=== PATIENT | female | born 1940 | race Caucasian/White ===

== ENCOUNTER 2025-03-04 13:01 | Inpatient (IN) | payer MEDICARE, OTHER, SELFPAY ==
[2025-03-02] VITALS (8 sets, daily range): BP systolic 91–153; BP diastolic 51–78; BMI 25.1
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
[2025-03-02 02:36] LABS: Hematocrit 29.9 % (37.0-47.0); Hemoglobin 9.6 g/dL (12.0-16.0); Mean Corp Hgb Conc. 32.1 g/dL (33.0-37.0); Mean Corpuscular Volume 79.7 fL (81.0-99.0); Nucleated Red Blood Cells % 0 %; Platelet Count 206 10^3/uL (130-400); Red Cell Dist. Width 14.3 % (11.5-14.5)
[2025-03-02 02:50] LABS: ALT (SGPT) 16 U/L (0-35); AST (SGOT) 20 U/L (14-36); Albumin 3.7 g/dl (3.5-5.0); Alkaline Phosphatase 95 U/L (38-126); Blood Urea Nitrogen 22 mg/dl (7-17); Calcium 9.6 mg/dl (8.4-10.2); Carbon Dioxide 22 mmol/L (22-30); Chloride 110 mmol/L (98-107); Estimated Creatinine Clearance 31 ml/min; Glucose 106 mg/dl (70-99); Potassium 4.2 mmol/L (3.5-5.1); Sodium 139 mmol/L (135-145); Total Protein 6.8 g/dl (6.3-8.2); eGFR 45.19
[2025-03-02] MEDS: MORPHINE SULFATE 2 MG IV (02:54)
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
--- NOTE | 2025-03-02 09:25 | W.PN.HOSP.TC ---
Today's Communication/Plan
-
see a/p
Assessment / Plan
Assessment / Plan
Physical Exam
General: Initially appeared comfortable sleeping, noted severe rectal pain after being woken for examination
HEENT: NormoCephalic, Anicteric, Moist mucous membranes and PERRLA, Hard of hearing
Respiratory: Clear
Cardiac: S1/S2 and Regular Rhythm
GI: Soft, Non Tender, Non Distended and Normal Bowel Sounds
Musculoskeletal: No Clubbing, No Cyanosis and No Edema
Skin: Warm
Neuro: AOx1 oriented to self only, conversant though confusion noted
Psych: Relatively Calm cooperative, confused, apparent dementia
84F hx afib watchman htn CKD III hx falls constipation here for severe constipation overflow incontinence rectal pain. CT scan showing large stool burden and findings consistent with stercoral colitis. Patient also has cognitive decline for the
past few years.
PLAN:
Constipation
- med/surg admit
- lactulose enema in ED
- continue po lactulose bid with hold parameters
- miralax daily, prn MOM
- GI eval appreciated
- milk and molasses enema and diet as per GI
- IVF hydration support
-pain control
afib s/p watchman
Continue her amiodarone/metoprolol for afib, s/p watchman and confirmed effective, no blood thinners
HTN
Continue antihypertensive regimen
CKDIII
monitor renal function
minimize/avoid nephrotoxic agents as possible
DVT PPX - lovenox sq
code status - full code
discussed with patient and patient's daughter Flori at bedside
I spent a total of 50 minutes with the patient or on the floor. More than 50% of this time involved counseling and coordination of care.
Anticipated Discharge: 24 - 48 hours
Subjective/Interval History
-
Date of Service: March 02, 2025
No acute distress, appeared comfortable sleeping, however noted severe rectal pain on waking, abd tenderness. AOx1, only oriented to self. Daughter Flori present during evaluation.
Objective Data
-
Labs:
Laboratory Results
03/02/25
02:28
WBC 12.9 H
Hgb 9.6 L
Hct 29.9 L
Plt Count 206
Sodium 139
Potassium 4.2
Chloride 110 H
Carbon Dioxide 22
BUN 22 H
Creatinine 1.2 H
Glucose 106 H
Calcium 9.6
Total Bilirubin 0.6
AST 20
ALT 16
Alkaline Phosphatase 95
Vital Signs:
Vital Signs
Temp Pulse Resp BP Pulse Ox
98.5 F 75 18 153/64 96
03/02/25 08:48 03/02/25 08:48 03/02/25 08:48 03/02/25 08:48 03/02/25 08:48
[2025-03-02] MEDS: COZAAR 100 MG PO (09:34)
[2025-03-02] MEDS: NORVASC 5 MG PO (09:34)
[2025-03-02] MEDS: CATAPRES 0.05 MG PO ×2 (09:35→23:20)
[2025-03-02] MEDS: TOPROL XL 12.5 MG PO ×2 (09:35→23:21)
[2025-03-02] MEDS: DUPHALAC/CHRONULAC 20 GRAMS PO ×2 (09:36→21:06)
[2025-03-02] MEDS: MIRALAX 17 GRAMS PO (09:38)
[2025-03-02] MEDS: TYLENOL 650 MG PO ×2 (11:07→21:10)
[2025-03-02] MEDS: PACERONE 200 MG PO (11:08)
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
--- NOTE | 2025-03-02 15:54 | CM ---
Addendum entered by Tamiko Lyles 03/02/25 16:08:
[facility] visiting nurses
[phone]

Original Note:
web content & social media manager reviewed patient's chart and met with patient and daughter at bedsides, patient is [facility], patient was admitted under OBS, AWAN letter explained, signed and placed on chart, patient is staying with her daughter and son in law along with
her spouse in [place], family moved couple in about a month ago, patient has 1st floor set up with hospital bed, [employer] W/c, patient is current with [facility] visiting nurses and has private caregivers for 4 hours per day from [employer]. Per
daughter plan is to take patient home when stable, will sent referral to [facility].
Pharmacy: [facility].
[2025-03-02] MEDS: LR 1000 IV (17:00)
[2025-03-02] MEDS: MOTRIN 400 MG PO (17:02)
[2025-03-02] MEDS: LOVENOX 40 MG SC (18:23)
[2025-03-02] MEDS: SENOKOT-S 1 TABLET PO (21:10)
[2025-03-03] MEDS: LR 1000 IV ×3 (01:22→22:32)
[2025-03-03 06:19] LABS: Hematocrit 27.6 % (37.0-47.0); Hemoglobin 8.9 g/dL (12.0-16.0); Mean Corp Hgb Conc. 32.2 g/dL (33.0-37.0); Mean Corpuscular Volume 79.3 fL (81.0-99.0); Platelet Count 194 10^3/uL (130-400); Red Cell Dist. Width 14.9 % (11.5-14.5)
[2025-03-03 06:57] LABS: Blood Urea Nitrogen 18 mg/dl (7-17); Calcium 9.1 mg/dl (8.4-10.2); Carbon Dioxide 22 mmol/L (22-30); Chloride 109 mmol/L (98-107); Estimated Creatinine Clearance 31 ml/min; Glucose 98 mg/dl (70-99); Magnesium 2.4 mg/dl (1.6-2.3); Potassium 4.2 mmol/L (3.5-5.1); Sodium 138 mmol/L (135-145); eGFR 45.19
--- NOTE | 2025-03-03 07:24 | W.PN.HOSP.TC ---
Today's Communication/Plan
-
cont bowel regimen
diet as per Gi
possible discharge tomorrow home with home services if remains stable/cont to improve
Assessment / Plan
Assessment / Plan
Physical Exam
General: Initially appeared comfortable sleeping, noted severe rectal pain after being woken for examination
HEENT: NormoCephalic, Anicteric, Moist mucous membranes and PERRLA, Hard of hearing
Respiratory: Clear
Cardiac: S1/S2 and Regular Rhythm
GI: Soft, Non Tender, Non Distended and Normal Bowel Sounds
Musculoskeletal: No Clubbing, No Cyanosis and No Edema
Skin: Warm
Neuro: AOx2 disoriented to time, conversant though confusion noted
Psych: Relatively Calm cooperative, confused, apparent dementia
84F hx afib watchman htn CKD III hx falls constipation here for severe constipation overflow incontinence rectal pain. CT scan showing large stool burden and findings consistent with stercoral colitis. Patient also has cognitive decline for the
past few years.
PLAN:
Constipation
- med/surg admit
- lactulose enema in ED
- continue po lactulose bid with hold parameters
- miralax daily, prn MOM
- GI eval appreciated
- once milk and molasses enema with good response noted
-diet as per GI
- IVF hydration support
-pain control
afib s/p watchman
Continue her amiodarone/metoprolol for afib, s/p watchman and confirmed effective, no blood thinners
HTN
Continue antihypertensive regimen
CKDIII
monitor renal function
minimize/avoid nephrotoxic agents as possible
DVT PPX - lovenox sq
code status - full code
discussed with patient and patient's Deepak at bedside
I spent a total of 40 minutes with the patient or on the floor. More than 50% of this time involved counseling and coordination of care.
Anticipated Discharge: Within 24 hours
Subjective/Interval History
-
Date of Service: March 03, 2025
no acute distress resting comfortably in bed AOx2 disoriented to year. Conversant largely Coherent. Pain significantly improved since resolution of constipation. Deepak present during evaluation.
Objective Data
-
Labs:
Laboratory Results
03/03/25
05:53
WBC 11.3 H
Hgb 8.9 L
Hct 27.6 L
Plt Count 194
Sodium 138
Potassium 4.2
Chloride 109 H
Carbon Dioxide 22
BUN 18 H
Creatinine 1.2 H
Glucose 98
Calcium 9.1
Vital Signs:
Vital Signs
Temp Pulse Resp BP Pulse Ox
99 F 94 16 132/80 98
03/02/25 22:30 03/02/25 23:21 03/02/25 22:30 03/02/25 23:21 03/02/25 22:30
[2025-03-03 08:00] VITALS: BP 143/80
[2025-03-03] MEDS: CATAPRES 0.05 MG PO ×2 (10:16→22:33)
[2025-03-03] MEDS: NORVASC 5 MG PO (10:16)
[2025-03-03] MEDS: COZAAR 100 MG PO (10:17)
[2025-03-03] MEDS: TOPROL XL 12.5 MG PO ×2 (10:17→22:35)
[2025-03-03] MEDS: DUPHALAC/CHRONULAC PO ×2 (10:18→22:32)
[2025-03-03] MEDS: MIRALAX PO (10:18)
--- NOTE | 2025-03-03 10:52 | W.PN.GI.CBS2 ---
Today's Communication / Plan
-
Puree diet
C/w miralax BID standing not PRN, d/w family
GI will sign off please call for ?
Assessment / Plan
-
Fabi is an 84yo W with h/o afib s/p watchman and dementia bedbound who presents with rectal pressure and constipation. She use to live in [facility] and after falls was in SNF. Daughter moved parents up to live with her and for the past 3
wks there is constipation. She is not using bowel regimen daily basis . She is less active does not drink much water and incontinent. Vitals stable. Physical exam agitated, bruised head, poor dentition clear OP, dry mucous membranes, lower
quadrant TTP, contracted legs, CTAB. Hyperpigmentation over anterior shins bilaterally. Labs reviewed.
Impression
- Severe constipation with stercoral colitis
- Dementia
- Bed bound
- Afib s/p watchman
- Recurrent falls
- HTN
Recommendations
- Milk of molasses enema 03/02 with improvement
- C/w miralax BID stressed to family importance of daily not PRN use
- Adv to puree diet
- Serial abd exams
- Last Cscope at age 82 and declines all further which is reasonable given dementia and advanced age.
At this juncture if tolerates diet ok from GI perspective for hospital d/c today
Will sign off please call for ?
Subjective
Subjective
Date of Service: March 03, 2025
Per RN passed copious BMs yesterday and today post MOM enema. She is more awake today. Interested in diet. Son bedside
Objective
Data Reviewed
Laboratory Data:
Laboratory Results
03/03/25 05:53
03/03/25 05:53
Laboratory Results
Phosphorus 3.8 mg/dl (2.5-4.5) 03/03/25 05:53
Magnesium 2.4 mg/dl (1.6-2.3) H 03/03/25 05:53
Total Bilirubin 0.6 mg/dl (0.2-1.3) 03/02/25 02:28
AST 20 U/L (14-36) 03/02/25 02:28
ALT 16 U/L (0-35) 03/02/25 02:28
Alkaline Phosphatase 95 U/L (38-126) 03/02/25 02:28
Vital Signs and I&O:
Vital Signs
Temp Pulse Resp BP Pulse Ox
98.7 F 85 19 143/80 98
03/03/25 08:00 03/03/25 08:00 03/03/25 08:00 03/03/25 08:00 03/03/25 08:00
Physical Exam
Physical Exam
GEN: No acute distress, conversant but very confused
HEENT: anicteric, extraocular movements intact, poor dentition
GI: soft, non-distended, not tender to palpation, normal active bowel sounds, no hepatosplenomegaly
EXT: warm, well perfused, trace edema bilaterally
NEURO: AAOx1 only to self, non-focal
[2025-03-03 15:00] VITALS: BP 131/60
[2025-03-03] MEDS: LOVENOX 40 MG SC (18:43)
[2025-03-03 22:25] VITALS: BP 140/59
[2025-03-03 23:00] VITALS: BP 140/59
[2025-03-04 07:55] VITALS: BP 108/71
[2025-03-04] MEDS: MIRALAX PO (08:08)
[2025-03-04] MEDS: CATAPRES PO ×3 (08:08→12:09)
[2025-03-04] MEDS: DUPHALAC/CHRONULAC PO (08:08)
[2025-03-04] MEDS: COZAAR PO ×3 (08:08→12:09)
[2025-03-04] MEDS: NORVASC PO ×3 (08:09→12:09)
[2025-03-04] MEDS: PACERONE PO ×3 (08:09→12:09)
[2025-03-04] MEDS: TOPROL XL PO ×3 (08:09→12:09)
--- NOTE | 2025-03-04 08:09 | PTCARENOTE ---
Attempted to give AM medication. Patient refused and spit medication out. Hospitalist aware.Pt very agitated and yelling out crying. Plan of care ongoing.
[2025-03-04 08:55] LABS: Hematocrit 27.9 % (37.0-47.0); Hemoglobin 9.1 g/dL (12.0-16.0); Mean Corp Hgb Conc. 32.6 g/dL (33.0-37.0); Mean Corpuscular Volume 78.6 fL (81.0-99.0); Platelet Count 224 10^3/uL (130-400); Red Cell Dist. Width 14.7 % (11.5-14.5)
[2025-03-04] MEDS: LR 1000 IV (09:10)
--- NOTE | 2025-03-04 09:12 | W.PN.HOSP.TC ---
Today's Communication/Plan
-
discharge
Assessment / Plan
Assessment / Plan
Physical Exam
General: agitated
HEENT: NormoCephalic, Anicteric, Moist mucous membranes and PERRLA, Hard of hearing
Respiratory: Clear
Cardiac: S1/S2 and Regular Rhythm
GI: Soft, Non Tender, Non Distended and Normal Bowel Sounds
Musculoskeletal: No Clubbing, No Cyanosis and No Edema
Skin: Warm
Neuro/Psych: Agitated Confused yelling she wants to go home, daughter at bedside helping with re-orientation
84F hx afib watchman htn CKD III hx falls constipation here for severe constipation overflow incontinence rectal pain. CT scan showing large stool burden and findings consistent with stercoral colitis. Patient also has cognitive decline for the
past few years.
PLAN:
Constipation
- med/surg admit
- lactulose enema in ED
- continue po lactulose bid with hold parameters
- prn MOM
- GI eval appreciated cont Miralax BID
- once milk and molasses enema with good response noted
-diet as per GI
- IVF hydration support
-pain control
afib s/p watchman
Continue her amiodarone/metoprolol for afib, s/p watchman and confirmed effective, no blood thinners
Dementia
Sundowning
Waxing and waning
-likely hospital associated delirium vs dementia w/ behavioral disturbances
-family/daughter Flori at bedside comfortable with taking patient home- patient likely to improve when in familiar environment
HTN
Continue antihypertensive regimen
CKDIII
monitor renal function
minimize/avoid nephrotoxic agents as possible
DVT PPX - lovenox sq
code status - full code
Medically stable for discharge home with outpatient follow up recommendations.
discussed with patient and patient's daughter Flori
Total Time Preparing Discharge ____40___ minutes including examination of the patient, summary of the hospital stay, instructions for continuing care to all relevant caregivers; and preparation of discharge records, prescriptions, and referral
forms if necessary.
Anticipated Discharge: Today
Subjective/Interval History
-
Date of Service: March 04, 2025
Agitated confused yelling she wants to go home. Vitals signs otherwise stable on room air. Daughter Flori present during evaluation.
Objective Data
-
Labs:
Laboratory Results
03/04/25
08:18
WBC 11.2 H
Hgb 9.1 L
Hct 27.9 L
Plt Count 224
Sodium Pending
Potassium Pending
Chloride Pending
Carbon Dioxide Pending
BUN Pending
Creatinine Pending
Glucose Pending
Calcium Pending
Vital Signs:
Vital Signs
Temp Pulse Resp BP Pulse Ox
98.5 F 102 16 108/71 98
03/04/25 07:55 03/04/25 07:55 03/04/25 07:55 03/04/25 07:55 03/04/25 07:55
I&O
03/03/25 03/04/25 03/05/25
06:59 06:59 06:59
Intake Total 1320 / 1320
Balance 1320 / 1320
[2025-03-04 09:21] LABS: Blood Urea Nitrogen 15 mg/dl (7-17); Calcium 9.4 mg/dl (8.4-10.2); Carbon Dioxide 23 mmol/L (22-30); Chloride 109 mmol/L (98-107); Estimated Creatinine Clearance 34 ml/min; Glucose 97 mg/dl (70-99); Magnesium 2.1 mg/dl (1.6-2.3); Potassium 3.9 mmol/L (3.5-5.1); Sodium 137 mmol/L (135-145); eGFR 50.17
[2025-03-04] MEDS: LR IV (10:47)
--- NOTE | 2025-03-04 13:38 | W.DCSUMMARY ---
Discharge Summary
Discharge Data
Date of Admission: 03/02/25
Date of Discharge: 03/04/25
-
Pending Results: No
Discharge Plan
-
Patient Disposition: Home with Home Care
Discharge Diagnosis/Procedures: Severe constipation with stercoral colitis
Chronic Kidney Disease Stage III
Dementia with behavioral disturbances
Condition: Fair
Diet: Other diet
Additional Diets: Pureed diet, ok to advance as tolerated
Activity: As tolerated
Driving Restrictions: No driving
Bathing Restrictions: None
Blood Work: Repeat CBC and BMP with primary care provider in 1 week of discharge
Others Tests: Repeat CT abd/pelvis with IV contrast, with primary care provider, in 1 month of discharge
Other Services: PT and OT
Activity Restrictions/Additional Instructions:
Follow up with primary care provider in 1 week of discharge.
Continue with Miralax twice a day for severe constipation prophylaxis. This is available over the counter.
Please take medications as prescribed/recommended and follow up with primary care provider and/or other healthcare provider involved in your care for refills and/or further adjustment to your medication regimen as necessary.
Referrals:
UNKNOWN - PT DOES,NOT KNOW [Family Provider]
Prescriptions:
New
polyethylene glycol 3350 17 gram Powder In Packet
17 g PO BID Qty: 60 0RF
Continued
clonidine HCl 0.1 mg Tablet
0.05 mg PO BID
amiodarone 200 mg Tablet
200 mg PO Q48H
Rx Instructions:
every other day
amlodipine 5 mg Tablet
5 mg PO DAILY
metoprolol succinate 25 mg Tablet Extended Release 24 Hr
12.5 mg PO BID
losartan 100 mg Tablet
100 mg PO DAILY
Discharge Orders:
Discharge Patient (As Directed); Ordered 03/04/25
Ordered By: Darryn Shultz
Discharge Date and Time
Print Language: DOMINICAN
--- NOTE | 2025-03-04 13:43 | CM ---
Addendum entered by Hyun Bennett 03/04/25 13:57:
Patient scheduled for 6:30 p.m. ambulance transport
Original Note:
CM reviewed chart, patient seen with daughter, for discharge today. Patient will require ambulance transport home, confirmed address, one step to enter, someone will be in the home to accept patient. Plan return home with Lucy COBB, caregivers,
family support. CM will continue to follow for all discharge planning needs.
Plan; home with family, Lucy COBB, caregivers
[facility] visiting nurses
[2025-03-04 15:36] VITALS: BP 110/62
== END 2025-03-04 18:42 | disposition home health service (06) | DRG 392 ==
LOC: 4 WEST ACU 13:01
PROVIDERS: ADMITTING PHYSICIAN Internal Medicine; ATTENDING PHYSICIAN Internal Medicine; CONSULT PHYSICIAN Internal Medicine Gastroenterology; EMERGENCY PHYSICIAN Emergency Medicine
DX: K52.89 Other specified noninfective gastroenteritis and colitis (principal); F03.918 Unspecified dementia, unspecified severity, with other behavioral disturbance; F05 Delirium due to known physiological condition; I31.39 Other pericardial effusion (noninflammatory); K59.00 Constipation, unspecified; N18.30 Chronic kidney disease, stage 3 unspecified; I12.9 Hypertensive chronic kidney disease with stage 1 through stage 4 chronic kidney disease, or unspecified chronic kidney disease; I48.91 Unspecified atrial fibrillation; Z95.818 Presence of other cardiac implants and grafts; Z74.01 Bed confinement status; Z88.0 Allergy status to penicillin; Z88.2 Allergy status to sulfonamides; Z91.81 History of falling
CPT/HCPCS: 51798; 74177; 80048; 80053; 83735; 84100; 84443; 85025; 85027; 96374; 97163; 97167; 99285; Q9967

== ENCOUNTER 2025-05-22 12:44 | Emergency (ER) | payer MEDICARE, OTHER, SELFPAY ==
[2025-05-22] VITALS (10 sets, daily range): BP systolic 128–155; BP diastolic 62–95; BMI 24.0
[2025-05-22 13:22] LABS: Hematocrit 24.7 % (37.0-47.0); Hemoglobin 7.7 g/dL (12.0-16.0); Mean Corp Hgb Conc. 31.2 g/dL (33.0-37.0); Mean Corpuscular Volume 82.3 fL (81.0-99.0); Nucleated Red Blood Cells % 0 %; Platelet Count 286 10^3/uL (130-400); Red Cell Dist. Width 14.7 % (11.5-14.5)
[2025-05-22 13:51] LABS: ALT (SGPT) 19 U/L (0-35); AST (SGOT) 28 U/L (14-36); Albumin 4.2 g/dl (3.5-5.0); Alkaline Phosphatase 81 U/L (38-126); Blood Urea Nitrogen 20 mg/dl (7-17); Calcium 9.5 mg/dl (8.4-10.2); Carbon Dioxide 25 mmol/L (22-30); Chloride 106 mmol/L (98-107); Glucose 133 mg/dl (70-99); Potassium 4.1 mmol/L (3.5-5.1); Sodium 138 mmol/L (135-145); Total Protein 6.8 g/dl (6.3-8.2); eGFR 41.06
[2025-05-22] MEDS: NSS 500 IV (17:57)
--- NOTE | 2025-05-22 18:14 | ED.GENMED ---
History of Present Illness
General
Chief Complaint: Abnormal Lab Value
Source: patient and family
Exam Limitations: none
Time Seen by Provider: 05/22/25 17:22
History of Present Illness
History of Present Illness:
See MDM
Past History
Past History
ED Past Medical History: HTN and Other (Skin graft)
ED Past Surgical History: Other (Skin graft)
Social History
Tobacco: Non-smoker
Alcohol: None
Drug: None
Living: with family
Employment: Not employed
Family History
Family History: Other
Phy Exam
Physical Exam
Physical Exam:
See MDM
Course
Orders/Labs/Results
Orders:
Orders
05/22/25 13:03
Type+Screen Urgent
Complete Blood Count/With Diff Urgent
Comprehensive Metabolic Panel Urgent
05/22/25 17:30
Blood Bank Products [* Blood Bank Products] Urgent
's Orders: Mani Piedra, DO
Blood Bank Products: *Packed RBC Leuko (PRBC's
Quantity: 1
Transfuse Today: Yes
Reason: Anemia
0.9% Sodium Chloride 500 ml [Nss] 500 ml IV BOLUS
Abnormal Lab Results
05/22/25
13:03
RBC 3.00 L 10^6/uL
(4.20-5.40)
Hgb 7.7 L g/dL
(12.0-16.0)
Hct 24.7 L %
(37.0-47.0)
MCH 25.7 L pg
(27.0-31.0)
MCHC 31.2 L g/dL
(33.0-37.0)
RDW 14.7 H %
(11.5-14.5)
Absolute Monos (auto) 0.7 H 10^3/uL
(0.1-0.6)
Lymphocytes % 18.3 L %
(20.5-51.1)
Monocytes % 9.4 H %
(1.7-9.3)
BUN 20 H mg/dl
(7-17)
Creatinine 1.3 H mg/dL
(0.6-1.0)
Glucose 133 H mg/dl
(70-99)
Crossmatch IS Only See Detail
05/22/25 13:03
05/22/25 13:03
Vital Signs
Initial and Last Documented VS:
Initial Vital Signs
Temp Pulse Resp BP Pulse Ox
98.1 F 73 16 128/62 100
05/22/25 12:55 05/22/25 12:55 05/22/25 12:55 05/22/25 12:55 05/22/25 12:55
Last Documented Vital Signs
Temp Pulse Resp BP Pulse Ox
98.3 F 60 18 155/87 99
05/22/25 21:22 05/22/25 21:22 05/22/25 21:22 05/22/25 21:22 05/22/25 21:22
MDM/Problems Addressed
Differential Diagnosis Includes:
Note:
CHIEF COMPLAINT(S)
Low hemoglobin levels and fatigue.
HISTORY OF PRESENT ILLNESS
The patient is an 84-year-old female with a past medical history of being a wheelchair user and requiring home care, presented with concerns regarding low hemoglobin levels detected through routine blood work. The patient had a hemoglobin level of
6.3 g/dL noted from a recent test, which raised concerns due to her history of lower hemoglobin levels. A subsequent reading showed a hemoglobin level of 7.7 g/dL. Her baseline hemoglobin typically ranges around 8.9 to 9.0 g/dL.
The patient experienced persistent twitching last week, prompting initial concerns of dehydration. 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 She has been relatively stable after
these events but remains on the low end hemoglobin-mayes. Recent admissions were noted due to constipation. Because of this, she no longer takes her iron. She has had a previous episode of heart failure, which improved after undergoing a
transcatheter aortic valve replacement (TAVR) two years ago. The patient is no longer on diuretics like Lasix.
The patient�s condition appears stable, with no recent changes in mental status or any significant incidences of red or black stools. Her sister, who is also her caregiver, reported no significant changes in her eating habits, although she may not
consume an iron-rich diet and tends to have a poor appetite. The patient expressed more fatigue than usual, potentially related to her hemoglobin levels. Daughter denies any concern for UTI
PAST MEDICAL AND SURGICAL HISTORY
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
CHRONIC MEDICAL CONDITIONS SIGNIFICANTLY AFFECTING CARE
Heart failure (previously noted, now stable post-TAVR).
PHYSICAL EXAM
General: Alert, no acute distress.
Skin: Warm, dry.
Head: Normocephalic, atraumatic
Neck: Appears supple, trachea midline.
Eyes, Ears, Nose, Mouth, and Throat: Mildly dry mucous membranes
Cardiovascular: No signs of cyanosis. Regular rate and rhythm
Respiratory: Respirations are non-labored.
Abdomen: Non-distended and nontender
Musculoskeletal: No deformities
Neurological: No focal neurological deficit observed.
Psychiatric: Cooperative, appropriate mood and affect.
PLAN
The plan includes administering one unit of blood to address the low hemoglobin levels. A 500 mL saline infusion is also ordered to address potential dehydration. The patient and her sister consented to the proposed blood transfusion, which is
expected to take a few hours.
DIFFERENTIAL DIAGNOSIS
The Differential Diagnosis includes, in no particular order and is not limited to:
1. Anemia of chronic disease
2. Iron deficiency anemia
3. Gastrointestinal bleeding
4. Nutritional anemia
5. Chronic kidney disease
6. Hematologic malignancy
7. Aplastic anemia
8. Medication-induced anemia
9. Blood loss anemia
10. Myelodysplastic syndrome
SUMMARY OF ENCOUNTER
The patient, an 84-year-old female, was seen in the emergency department due to concerns about low hemoglobin levels and associated fatigue. She underwent a blood transfusion during her stay, which improved her well-being. Her past medical history,
including heart failure (now stable post-TAVR) and previous de los santos requiring transfusions, was considered during management.
DISPOSITION
The patient was discharged home.
PLAN
Arrange follow-up with the primary care provider to evaluate the necessity of restarting iron supplementation, considering the patients hesitance due to past constipation issues from iron.
PATIENT EDUCATION AND COUNSELING
The patient and her daughter were informed about the results of the blood transfusion and addressed concerns regarding the resumption of iron supplements and its side effects. Assurance was provided about seeking further medical advice for managing
iron supplementation and addressing constipation concerns.
FOLLOW-UP INSTRUCTIONS
Please call the office immediately to schedule a follow-up visit with the primary care physician to discuss further management of hemoglobin levels and any potential restart of iron therapy.
MEDICATION RECONCILIATION
The patient received a unit of blood transfusion during her stay in the emergency department.
MEDICAL DECISION MAKING
-Complexity of Data Reviewed: Chronic conditions affecting care include heart failure (stable post-TAVR) and history of de los santos requiring blood transfusions. Differential Diagnosis considerations include anemia of chronic disease, iron deficiency
anemia, and nutritional anemia.
-Data:
Category 2
Clinical information was reinforced by input from the patient�s daughter.
-Risk:
Prescription medication was not immediately prescribed but will be considered upon follow-up with primary care. The decision was made based on patient concerns about constipation from iron supplements.
DIAGNOSIS
- Iron deficiency anemia (D50.9)
- Anemia of chronic disease (D63.8)
*Pulse Oximetry
SaO2: 98
Oxygen Mode of Delivery: Room air
Patient hypoxic: no
*Critical Care Note
Total Time (30-74mins, 75-104mins- exclusive of procedures): Not Applicable
ED Attending Note
-
Portions of this chart may have been created with voice recognition software.� Occasional wrong word or��sound alike� substitutions may have occurred due to the inherent limitations of voice recognition software.
Discharge Plan
Departure
Patient Disposition: Home (Routine Discharge)
Date of Disposition: 05/22/25
Time of Disposition: 17:00
Patient with high blood pressure during this ER visit?: No
Discharge Problem:
Symptomatic anemia
Instructions: Anemia in adults, possibly from low iron - ED (DC)
Prescriptions:
No Action
clonidine HCl 0.1 mg Tablet
0.05 mg PO BID
amiodarone 200 mg Tablet
200 mg PO Q48H
Rx Instructions:
every other day
amlodipine 5 mg Tablet
5 mg PO DAILY
metoprolol succinate 25 mg Tablet Extended Release 24 Hr
12.5 mg PO BID
losartan 100 mg Tablet
100 mg PO DAILY
polyethylene glycol 3350 17 gram Powder In Packet
17 g PO BID Qty: 60 0RF
Referrals:
UNKNOWN - PT DOES,NOT KNOW [Family Provider]
Activity Restrictions/Additional Instructions:
Please return for any worsening symptoms.
You may return at any time if you have further concerns.
Please follow up with your doctor at the first available appointment, preferably this week.
Thank you for choosing [facility].
Interventions
Interventions:
*Risk Screen - Suicide Last Done: 05/22/25 12:55
*General Assessment Last Done: 05/22/25 12:55
*Neglect/Abuse Screening Last Done: 05/22/25 12:55
*ED COVID-19 Vaccine History Last Done: 05/22/25 17:33
*ED Influenza Vaccine History Last Done: 05/22/25 17:33
Discharge Date and Time
Print Language: OCCITAN
== END 2025-05-22 22:25 | disposition home or self-care (01) ==
LOC: EMR 12:44
PROVIDERS: Emergency Medicine; EMERGENCY PHYSICIAN Student in an Organized Health Care Education/Training Program
DX: D64.9 Anemia, unspecified (principal); I11.0 Hypertensive heart disease with heart failure; I50.9 Heart failure, unspecified; Z95.2 Presence of prosthetic heart valve
CPT/HCPCS: 99285; 36430; 96360; 80053; 85025; 86850; 86900; 86901; 86920; P9016

== ENCOUNTER 2025-08-07 18:55 | Inpatient (IN) | payer MEDICARE, OTHER, SELFPAY ==
[2025-08-07] VITALS (8 sets, daily range): BP systolic 119–160; BP diastolic 71–107; BMI 24.6; BMI 23.0
[2025-08-07 15:49] LABS: Hematocrit 34.8 % (37.0-47.0); Hemoglobin 11.5 g/dL (12.0-16.0); Mean Corp Hgb Conc. 33.0 g/dL (33.0-37.0); Mean Corpuscular Volume 77.5 fL (81.0-99.0); Nucleated Red Blood Cells % 0 %; Platelet Count 211 10^3/uL (130-400); Red Cell Dist. Width 15.5 % (11.5-14.5)
[2025-08-07 16:10] LABS: Blood Urea Nitrogen 20 mg/dl (7-17); Calcium 9.6 mg/dl (8.4-10.2); Carbon Dioxide 23 mmol/L (22-30); Chloride 106 mmol/L (98-107); Estimated Creatinine Clearance 34 ml/min; Glucose 105 mg/dl (70-99); Sodium 135 mmol/L (135-145); eGFR 50.17
[2025-08-07 16:30] LABS: COVID-19 Antigen Negative (Negative)
[2025-08-07 17:04] LABS: Urine Character Clear (Clear)
--- NOTE | 2025-08-07 17:05 | ED.GENMED ---
History of Present Illness
<Willow Castillo MD - Last Filed: 08/07/25 17:34>
General
Chief Complaint: Dehydration Symptoms
Time Seen by Provider: 08/07/25 15:26
<Nella Ramírez PA-C - Last Filed: 08/07/25 18:07>
General
Source: patient
Exam Limitations: dementia
Nursing documentation reviewed up to this point in time: agreed with
History of Present Illness
History of Present Illness:
see MDM
Past History
<Nella Ramírez PA-C - Last Filed: 08/07/25 18:07>
Past History
ED Past Medical History: HTN and Other (Skin graft)
ED Past Surgical History: Other (Skin graft)
Social History
Tobacco: Non-smoker
Alcohol: None
Drug: None
Living: with family
Employment: Not employed
Family History
Family History: Other
Review of Systems
<Nella Ramírez PA-C - Last Filed: 08/07/25 18:07>
Review of Systems
Allergies reviewed?: Yes
Unable to obtain full review of systems at this time due to: dementia
All Other Systems: Not applicable
Phy Exam
<Nella Ramírez PA-C - Last Filed: 08/07/25 18:07>
Physical Exam
Physical Exam:
See MDM
Course
<Willow Castillo MD - Last Filed: 08/07/25 17:34>
Orders/Labs/Results
Orders:
Orders
08/07/25 15:06
Electrocardiogram (*1) Urgent
Reason for Study: Abdominal Pain
EKG- Treatment ONCE
08/07/25 15:21
Basic Metabolic Panel Urgent
Complete Blood Count/With Diff Urgent
08/07/25 15:57
COVID-19 Antigen Urgent
Source: Nasal Swab
Urinalysis Reflex To Culture Urgent
Date Specimen was Collected: 08/07/25
Time Specimen was Collected: 15:06
Urine Microscopic Reflex Cult Urgent
Influenza A+B Rapid Molecular Urgent
ANUJ Source: Nasal Swab
Specimen Description:
08/07/25 16:29
C DIFF [C difficile Antigen & Toxins] Urgent
ANUJ Source: Feces/Stool
Specimen Description:
Norovirus by PCR Urgent
ANUJ Source: Feces/Stool
Specimen Description:
Stool Culture Urgent
ANUJ Source: Feces/Stool
Specimen Description:
08/07/25 16:30
CT Abd/Pel (IV only)-DH only Urgent
Comment:
Reason For Exam: severe diarrhea with h/o stercoral colitis
08/07/25 16:32
0.9% Sodium Chloride 500 ml [Nss] 500 ml IV BOLUS
08/07/25 17:08
Magnesium Urgent
Potassium Urgent
08/07/25 17:43
Potassium Chloride Powder [Klor-Con] 40 meq PO NOW STA
Potassium Chloride [KCl] 40 meq 0.9% Sodium Chloride 250 ml [Nss] 250 ml IV NOW
08/07/25 17:52
Potassium Chloride [KCl] 40 meq 0.9% Sodium Chloride 250 ml [Nss] 250 ml IV NOW
Abnormal Lab Results
08/07/25 08/07/25 08/07/25
15:21 15:57 17:08
Hgb 11.5 L g/dL
(12.0-16.0)
Hct 34.8 L %
(37.0-47.0)
MCV 77.5 L fL
(81.0-99.0)
MCH 25.6 L pg
(27.0-31.0)
RDW 15.5 H %
(11.5-14.5)
Absolute Monos (auto) 0.8 H 10^3/uL
(0.1-0.6)
Monocytes % 9.5 H %
(1.7-9.3)
Potassium 2.8 L mmol/L
(3.5-5.1)
BUN 20 H mg/dl
(7-17)
Creatinine 1.1 H mg/dL
(0.6-1.0)
Glucose 105 H mg/dl
(70-99)
Ur Occult Blood Reflex 1+ A
(Negative)
Urine Albumin (Reflex) 1+ A
(Neg - Trace)
08/07/25 15:21
08/07/25 17:08
Vital Signs
Initial and Last Documented VS:
Initial Vital Signs
Temp BP
36.7 C 159/92
08/07/25 15:06 08/07/25 15:06
Last Documented Vital Signs
Temp Pulse Resp BP Pulse Ox
36.7 C 101 17 160/71 98
08/07/25 15:11 08/07/25 17:30 08/07/25 17:30 08/07/25 17:08 08/07/25 17:34
<Nella Ramírez PA-C - Last Filed: 08/07/25 18:07>
Orders/Labs/Results
Orders:
Orders
08/07/25 15:06
Electrocardiogram (*1) Urgent
Reason for Study: Abdominal Pain
EKG- Treatment ONCE
08/07/25 15:21
Basic Metabolic Panel Urgent
Complete Blood Count/With Diff Urgent
08/07/25 15:57
COVID-19 Antigen Urgent
Source: Nasal Swab
Urinalysis Reflex To Culture Urgent
Date Specimen was Collected: 08/07/25
Time Specimen was Collected: 15:06
Urine Microscopic Reflex Cult Urgent
Influenza A+B Rapid Molecular Urgent
ANUJ Source: Nasal Swab
Specimen Description:
08/07/25 16:29
C DIFF [C difficile Antigen & Toxins] Urgent
ANUJ Source: Feces/Stool
Specimen Description:
Norovirus by PCR Urgent
ANUJ Source: Feces/Stool
Specimen Description:
Stool Culture Urgent
ANUJ Source: Feces/Stool
Specimen Description:
08/07/25 16:30
CT Abd/Pel (IV only)-DH only Urgent
Comment:
Reason For Exam: severe diarrhea with h/o stercoral colitis
08/07/25 16:32
0.9% Sodium Chloride 500 ml [Nss] 500 ml IV BOLUS
08/07/25 17:08
Magnesium Urgent
Potassium Urgent
08/07/25 17:43
Potassium Chloride Powder [Klor-Con] 40 meq PO NOW STA
Potassium Chloride [KCl] 40 meq 0.9% Sodium Chloride 250 ml [Nss] 250 ml IV NOW
08/07/25 17:52
Potassium Chloride [KCl] 40 meq 0.9% Sodium Chloride 250 ml [Nss] 250 ml IV NOW
Abnormal Lab Results
08/07/25 08/07/25 08/07/25
15:21 15:57 17:08
Hgb 11.5 L g/dL
(12.0-16.0)
Hct 34.8 L %
(37.0-47.0)
MCV 77.5 L fL
(81.0-99.0)
MCH 25.6 L pg
(27.0-31.0)
RDW 15.5 H %
(11.5-14.5)
Absolute Monos (auto) 0.8 H 10^3/uL
(0.1-0.6)
Monocytes % 9.5 H %
(1.7-9.3)
Potassium 2.8 L mmol/L
(3.5-5.1)
BUN 20 H mg/dl
(7-17)
Creatinine 1.1 H mg/dL
(0.6-1.0)
Glucose 105 H mg/dl
(70-99)
Ur Occult Blood Reflex 1+ A
(Negative)
Urine Albumin (Reflex) 1+ A
(Neg - Trace)
08/07/25 15:21
08/07/25 17:08
Vital Signs
Initial and Last Documented VS:
Initial Vital Signs
Temp BP
36.7 C 159/92
08/07/25 15:06 08/07/25 15:06
Last Documented Vital Signs
Temp Pulse Resp BP Pulse Ox
36.7 C 101 17 160/71 98
08/07/25 15:11 08/07/25 17:30 08/07/25 17:30 08/07/25 17:08 08/07/25 17:34
<Nella Ramírez PA-C - Last Filed: 08/07/25 18:07>
MDM/Problems Addressed
Differential Diagnosis Includes:
see MDM
MDM/Problems Addressed:
Note:
CHIEF COMPLAINT(S)
Severe diarrhea, possible dehydration.
HISTORY OF PRESENT ILLNESS
The patient 84 y/o F history of A-fib status post watchman, came off Amio about a month ago, stopped blood thinners after her watchman, from home, history of dementia, slightly poor historian though she can recall some info, her family is more
helpful, presents with severe diarrhea, experiencing frequent bowel movements, estimating around ten episodes within the day. Starting yesterday. The patient reports not eating and may be concerned about dehydration due to the amount of diarrhea.
I spoke with the patient's daughter who says that it was like a faucet out of her rectum today that she changed her sheets and close about 5 or 6 times, it was foul-smelling. Patient recently had Cipro for UTI, she stopped it about 1 week ago. She
is mostly not on ambulatory, can take maybe a step or 2 but mostly uses a wheelchair. She has had issues with chronic incontinence.
Daughters convinced the patient is dehydrated. Patient is at her baseline, some memory loss, some mild anxiety and confusion
ADDITIONAL HISTORY OBTAINED FROM SOURCES OTHER THAN THE PATIENT
The patients caregiver, Deysi, and daughters were involved in getting the patient to care, highlighting dehydration concerns. Specific individual names, such as Bridget Suggs, were provided to connect with family for more information.
REVIEW OF SYSTEMS
- Gastrointestinal: Severe diarrhea, approximately ten episodes, lasting for one day.
- Appetite/nutrition: Not eating, contributing to dehydration concerns.
- Cardiovascular: History of atrial fibrillation, possibly present due to dehydration.
- Genitourinary: Recent urinary tract infection with unspecified antibiotic treatment.
PHYSICAL EXAM
GENERAL: Alert , tearful, anxious
EYE: pupils equal and reactive
NECK: Supple
ENT: o/p clr, mildly dry
CARDIAC: Irregularly irregular
LUNGS: Clear breath sounds bilaterally, no acute respiratory distress, no wheezes/rales/rhonchi
ABDOMEN: Soft, without focal tenderness, no r/g, no cvat, normal bowel sounds
NEUROLOGICAL: Alert and oriented, no focal neuro deficits
SKIN: Warm and dry, skin intact.
MUSCULOSKELETAL: No edema, well perfused. neg christopher's sign
PSYCH: Normal and appropriate interaction.
- Nursing notes reviewed and vital signs reviewed.
PLAN
- Contact the patients daughter, Bridget Suggs, for additional information and details.
- Evaluate the cause of atrial fibrillation and consider rehydration strategies.
- Further investigation into possible dehydration and underlying causes of severe diarrhea.
- Determine appropriate diagnostics to clarify fever presence and history of urinary tract infection.
DIFFERENTIAL DIAGNOSIS
The Differential Diagnosis includes, in no particular order and is not limited to:
1. Acute gastroenteritis
2. Infectious diarrhea
3. Dehydration secondary to gastrointestinal losses
4. Exacerbation of atrial fibrillation
5. Urinary tract infection recurrence or persistence
6. Electrolyte imbalance
7. Medication side effect
8. Irritable bowel syndrome
9. Inflammatory bowel disease
10. Foodborne illness.
ricky billings 84 yo F mild dementia,nonamb
PAF, s/p watchmann, off amio x 1 mo, no AC
acute diarrhea x 24 hours about 10 episodes, watery; recent cipro for UTI last week
need stool for cdiff
AF with HR 90s-110s, stable bp
ivf, ct pending, stool studies pending
k 2.8
will replete
<Nella Ramírez PA-C - Last Filed: 08/07/25 18:07>
*Pulse Oximetry
SaO2: 98
Oxygen Mode of Delivery: Room air
Patient hypoxic: no (98)
*Critical Care Note
Total Time (30-74mins, 75-104mins- exclusive of procedures): Not Applicable
ED Attending Note
<Willow Castillo MD - Last Filed: 08/07/25 17:34>
ED Attending Note
Patient seen and examined by attending physician: Yes
I performed the substantive portion of visit, reviewed & personally made and approve the management plan that is documented in note by myself or BETHANIE.: Yes
ED Attending Note:
Patient appears nontoxic. She is confused and slightly agitated. She is breathing comfortably. Abdomen is soft and nontender throughout
<Nella Ramírez PA-C - Last Filed: 08/07/25 18:07>
-
Portions of this chart may have been created with voice recognition software.� Occasional wrong word or��sound alike� substitutions may have occurred due to the inherent limitations of voice recognition software.
Discharge Plan
Departure
Patient Disposition: Admit
Date of Disposition: 08/07/25
Time of Disposition: 17:39
Admit to: Telemetry
Presentation/result/management discussed w/ accepting MD/DO: Hospitalist
Condition: Fair
Covid-19: Not Applicable
Discharge Problem:
Diarrhea, Acute dehydration, Atrial fibrillation with rapid ventricular response
Prescriptions:
No Action
clonidine HCl 0.1 mg Tablet
0.05 mg PO BID
amiodarone 200 mg Tablet
200 mg PO Q48H
Rx Instructions:
every other day
amlodipine 5 mg Tablet
5 mg PO DAILY
metoprolol succinate 25 mg Tablet Extended Release 24 Hr
12.5 mg PO BID
losartan 100 mg Tablet
100 mg PO DAILY
polyethylene glycol 3350 17 gram Powder In Packet
17 g PO BID Qty: 60 0RF
Referrals:
UNKNOWN - PT DOES,NOT KNOW [Family Provider]
Interventions
Interventions:
*General Assessment Last Done: 08/07/25 15:20
*Neglect/Abuse Screening Last Done: 08/07/25 15:20
*ED COVID-19 Vaccine History Last Done: 08/07/25 15:20
*ED Influenza Vaccine History Last Done: 08/07/25 15:20
[facility] Fall Risk Assessment Tool Last Done: 08/07/25 16:21
*Risk Screen - Suicide (C-SSRS) Last Done: 08/07/25 15:20
ED- Cardiac Assessment Last Done: 08/07/25 15:30
ED- Neurological Assessment Last Done: 08/07/25 15:30
ED- Pulmonary Assessment Last Done: 08/07/25 15:30
Discharge Date and Time
Print Language: MONEGASQUE
[2025-08-07] MEDS: NSS 500 IV (17:09)
[2025-08-07 17:39] LABS: Magnesium 2.0 mg/dl (1.6-2.3); Potassium 2.8 mmol/L (3.5-5.1)
--- NOTE | 2025-08-07 17:45 | HPS.HSE ---
Family Physician
-
Family Physician: NOT KNOW UNKNOWN - PT DOES
Chief Complaint
-
Diarrhea
History of Present Illness
Patient is an 84 y/o female past medical history of paroxysmal atrial fibrillation s/p Watchman, hypertension, insomnia and chronic constipation who presents wtih diarrhea. Patient started with profuse diarrhea last evening. Patient reports too
many episodes to count. Family notes they used every bedsheet in house. Patient reports feeling slightly nauseous this morning but denies any vomiting. She denies abdominal pain. She denies fevers, sweats or chills. Patient recently completed a
coarse of ciprofloxacin for UTI a few days ago. Family no sick contacts or others with similar symptoms.
Medical History
Past Medical History
Past Medical History: Reports Other
Additional Past Medical History:
Paroxysmal Atrial Fibrillation s/p Watchman
Essential Hypertension
Anxiety / Panic Attacks
Insomnia
Chronic Constipation
Past Surgical History: Reports Other
Additional Past Surgical History:
Lower Extremity Skin Graft
Social History
Tobacco: Non-smoker
Alcohol: None
Drug: None
Personal:
Living: With Family
Employment: Retired
Family History
Family History: Not pertinent
Allergies / Home Medications
Allergies reflects when Allergies were last updated in [employer].
Home Medications with original date entered in [employer]
Allergy/Medication List:
Allergies
Allergy/AdvReac Type Severity Reaction Status Date / Time
Penicillins Allergy Unknown Verified 08/07/25 15:10
Sulfa (Sulfonamide Allergy Unknown Verified 08/07/25 15:10
Antibiotics)
Home Medications
losartan 100 mg tablet 100 mg PO DAILY 03/02/25
metoprolol succinate 25 mg tablet,extended release 24 hr 12.5 mg PO BID 03/02/25
amlodipine 10 mg tablet 10 mg PO DAILY 08/07/25
docusate sodium 100 mg capsule (Colace) 200 mg PO Q2D 08/07/25
lorazepam 0.5 mg tablet 0.5 mg PO DAILYPRN PRN anxiety 08/07/25
multivitamin with iron 1 tab PO DAILY 08/07/25
sennosides 8.6 mg tablet (senna) 17.2 mg PO Q2D 08/07/25
trazodone 50 mg tablet 50 mg PO HS 08/07/25
Review of Systems
-
History Source: Patient
A 12 point ROS was completed and negative except as noted: Yes
Constitutional: Denies Fever or Chills
Respiratory: Denies Cough or Trouble Breathing
Cardiac: Denies Chest Pain or Palpitations
Abdomen/GI: Reports See HPI
Physical Exam
Vital Signs
Vital Signs
Temp Pulse Resp BP Pulse Ox
98.1 F 97 17 159/92 98
08/07/25 15:11 08/07/25 16:15 08/07/25 16:15 08/07/25 15:06 08/07/25 17:34
Physical Exam
General: Comfortable and Conversant
HEENT: Anicteric and Moist mucous membranes
Respiratory: Clear and Non Labored Respirations
Cardiac: S1/S2, Irregular Rhythm and Tachycardia
GI: Soft and Non Tender
Rectal: Deferred by Provider
Musculoskeletal: No Clubbing, No Cyanosis and No Edema
Skin: Warm and Dry
Neuro: Awake, Alert and No Motor Deficits
Psych: Calm
Laboratory Results
-
08/07/25 15:21
08/07/25 17:08
Laboratory Results
Total Bilirubin Cancelled 08/07/25 15:21
AST Cancelled 08/07/25 15:21
ALT Cancelled 08/07/25 15:21
Alkaline Phosphatase Cancelled 08/07/25 15:21
Abd/Pelvis CT:
No rectal fecal impaction. There are short segments of circumferential wall thickening involving the hepatic flexure, distal transverse colon, splenic flexure, descending colon, sigmoid colon, and rectum. Rectum is associated with mild perinephric
soft tissue stranding and mild presacral edema. No evidence of pneumatosis. Likely nonspecific colitis.
Data Reviewed
-
CT Scan: Report Reviewed by me
Lab Data: Labs Reviewed by me
Impression/Plan
-
Uncontrolled Diarrhea / Pancolitis, suspect related to C Diff following recent antibiotics
-Start empiric oral vancomycin pending stool studies
-Allow clear liquids
-Continue IVFs
Hypokalemia, secondary to GI losses
-Replace potassium PO and IV
-Recheck potassium later today and in AM
Paroxysmal Atrial Fibrillation s/p Watchman
-Patient currently in a-fib likely trigger by hypokalemia and volume loss
-Rate with only fair control - Will give Lopressor 5mg IV NOW
-Continue metoprolol 12.5mg BID as prior to admission
-Consider Cardiology consult if not improving with IVFs and electrolyte correction
Essential Hypertension
-Continue amlodipine, losartan and metoprolol with hold parameters
Insomnia / Panic Attacks
-Continue trazodone
-Continue lorazepam PRN as prior to admission
DVT proph: SCDs
Code Status: Full Code
[2025-08-07 17:46] LABS: Urine Red Blood Cell 0-2 /HPF (0-2); Urine White Cell 0-2 /HPF (0-5)
--- NOTE | 2025-08-07 17:48 | W.PN.UPDATE ---
Update Note
Progress Note Update
I could not get any information from the patient as�Information gathered by chart review and speaking with the ER staff.
This note serves as an addendum to the H&P by edger saw operator Vinny AGOSTO
HPI�
84F from Home with Dementia X AF s/p watchman, came off Amiodarone and blood thinners after her watchman
Seen at ER
- evere diarrhea, experiencing frequent bowel movements, around ten episodes within the da since yesterday.
- reports not eating and may be concerned about dehydration due to the amount of diarrhea.
- per daughter who says that it was like a faucet out of her rectum today
- foul-smelling.
- Recently had Cipro for UTI, she stopped it about 1 week ago.
At baseline, mostly not on ambulatory, can take maybe a step or 2 but mostly uses a wheelchair. S
Reviewed VS:
Temp Pulse Resp BP Pulse Ox
98.1 F 101 17 160/71 98
08/07/25 15:11 08/07/25 17:30 08/07/25 17:30 08/07/25 17:08 08/07/25 17:34
PE
Gen: alert , anxious
HEENT: NAD
Neck: supple
Lungs:Clear, NAD
Cor: RRR S1 S2
Abdomen:�soft and benign
JEWELRY SALES REPRESENTATIVE: Alert and oriented, no focal neuro deficits
MS: No edema
Psych: Normal and appropriate interaction.
Labs
05/22/25 08/07/25 08/07/25
13:03 15:21 17:08
WBC 8.3
Hgb 11.5 L
MCV 77.5 L
Plt Count 211
Absolute Monos (auto) 0.8 H
Monocytes % 9.5 H
Potassium 2.8 L
Creatinine 1.3 H 1.1 H
Estimated Creat Clear 34
eGFR 41.06 50.17
Magnesium 2.0
Pending LA
EKG
ATRIAL FIBRILLATION
LEFT ANTERIOR FASCICULAR BLOCK
MINIMAL VOLTAGE CRITERIA FOR LVH, MAY BE NORMAL VARIANT ( Eleuterio product )
NONSPECIFIC ST AND T WAVE ABNORMALITY
ABNORMAL ECG
NO PREVIOUS ECGS AVAILABLE
Confirmed by CORWIN GORDILLO MD ([id number]) on 08/07/2025 3:35:[address] AP
- No rectal fecal impaction.
- There are short segments of circumferential wall thickening involving the hepatic flexure, distal transverse colon, splenic flexure, descending colon, sigmoid colon, and rectum.
- Rectum is associated with mild perinephric soft tissue stranding and mild presacral edema.
- No evidence of pneumatosis. Likely nonspecific colitis.
- No bowel obstruction.
- No obstructive uropathy.
- Stable asymmetric right renal cortical atrophy and diminished renal function. Renal cortical scarring. Stable right renal cyst.
Last hospitalist admission: 03/02/25 - 03/04/25
Discharge Diagnosis/Procedures:
Severe constipation with stercoral colitis
Chronic Kidney Disease Stage III
Dementia with behavioral disturbances
ASSESSMENT & PLAN
Pending Rx reconciliation
Presumed C Diff colitis unless proven otherwise
Acute Pancolitis per CT suggest hort segments of circumferential wall thickening involving the hepatic flexure, distal transverse colon, splenic flexure, descending colon, sigmoid colon, and rectum
Acute profuse non blood watery diarrhea
Recent PO Cipro 1 week for UTI ( 07/27 - 08/03 )
- unable to give stool spec for urgent stool for C Diff , Norovirus yet
- Empiric PO Vancomycin 125mg q6H
- IVF
- check LA
Hypokalemic due to acute GI loss
HX CKD
- s/p IV KCL 40 x 1
In A Fib
Known HX A Fib
- Has watchman
pHTN
- c/w Amlodipine , Losartan - Hold if SBP < 110
DVT Px: SCD
Full code
IP TLM
[2025-08-07] MEDS: LOPRESSOR 5 MG IV (18:33)
[2025-08-07] MEDS: KCL 270 MEQ IV (18:33)
[2025-08-07] MEDS: NSS 1000 IV (22:57)
[2025-08-07] MEDS: DESYREL 50 MG PO (22:58)
[2025-08-07] MEDS: TOPROL XL 12.5 MG PO (22:58)
[2025-08-07] MEDS: FIRVANQ 125 MG PO (22:59)
[2025-08-08 03:06] VITALS: BP 138/67
[2025-08-08] MEDS: FIRVANQ 125 MG PO (05:43)
[2025-08-08 06:00] VITALS: BMI 23.1
[2025-08-08 07:15] VITALS: BP 123/67
[2025-08-08] MEDS: NORVASC 10 MG PO (08:31)
[2025-08-08] MEDS: COZAAR 100 MG PO (08:31)
[2025-08-08] MEDS: TOPROL XL 12.5 MG PO ×2 (08:32→20:25)
[2025-08-08] MEDS: NSS 1000 IV ×2 (10:19→20:28)
[2025-08-08 11:00] VITALS: BP 113/76
--- NOTE | 2025-08-08 12:20 | W.PN.HOSP.TC ---
Today's Communication/Plan
-
follow labs and stool studies off Vanco
PT/OT
Assessment / Plan
Assessment / Plan
84yo F with PMHx of chronic anemia, anxiety, dementia, HTN, recent UTI completed Cipro 1 week ago came with onset of profuse diarrhea on the day of admisson. COncern for possible colitis on CT, so initially started on oral vanco pending stool Cx,
however no BM in the hospital for 24h initially. Also dehydrated with hypokalemia
A/P:
#Colitis, most likely infectious
seems to be self-limiting as diarrhea stopped before Vanco oral initiated
short segments of circumferential wall thickening involving the hepatic flexure, distal transverse colon, splenic flexure, descending colon, sigmoid colon, and rectum. Rectum is associated with mild perinephric soft tissue stranding and mild
presacral edema. No evidence of pneumatosis. Likely nonspecific colitis
Stool studies
Probiotics
#Exophytic upper pole right renal cyst measuring 3.5 cm
#Mild peripheral renal cortical scarring
#CKD stage 3a
cont to follow with PCP
#Hypokalemia
Replete and follow
DVT ppx hep
Full code
I have spent at least 51min reviewing chart, test results, communication with bedside and providing direct patient care
Anticipated Discharge: Within 24 hours
Subjective/Interval History
-
Date of Service: August 08, 2025
Objective Data
-
Labs:
Laboratory Results
08/07/25 08/08/25 08/08/25
22:00 06:00 12:14
Sodium Pending Pending
Potassium Cancelled Pending Pending
Chloride Pending Pending
Carbon Dioxide Pending Pending
BUN Pending Pending
Creatinine Pending Pending
Glucose Pending Pending
Calcium Pending Pending
Vital Signs:
Vital Signs
Temp Pulse Resp BP Pulse Ox
97.8 F 93 18 113/76 99
08/08/25 11:00 08/08/25 11:00 08/08/25 11:00 08/08/25 11:00 08/08/25 11:00
I&O
08/07/25 08/08/25 08/09/25
06:59 06:59 06:59
Intake Total 700 / 700
Balance 700 / 700
Review of Systems
-
History Source: Patient
All other systems: Reviewed and negative
Physical Exam
-
General: No Apparent Distress
HEENT: Normocephalic
Cardiac: Regular Rhythm
GI: Soft, Nondistended and Tender (LLQ)
Skin: Warm
Neuro: Awake, Alert, Oriented and AO x 3
Psych: Calm
[2025-08-08 12:50] LABS: Hematocrit 35.7 % (37.0-47.0); Hemoglobin 11.9 g/dL (12.0-16.0); Mean Corp Hgb Conc. 33.3 g/dL (33.0-37.0); Mean Corpuscular Volume 79.5 fL (81.0-99.0); Platelet Count 224 10^3/uL (130-400); Red Cell Dist. Width 15.7 % (11.5-14.5)
[2025-08-08 13:12] LABS: Blood Urea Nitrogen 12 mg/dl (7-17); Calcium 9.6 mg/dl (8.4-10.2); Carbon Dioxide 22 mmol/L (22-30); Chloride 109 mmol/L (98-107); Estimated Creatinine Clearance 39 ml/min; Glucose 114 mg/dl (70-99); Iron 86 ug/dl (37-170); Magnesium 1.9 mg/dl (1.6-2.3); Potassium 3.5 mmol/L (3.5-5.1); Sodium 138 mmol/L (135-145); eGFR 56.25
[2025-08-08 13:21] LABS: Total Iron Binding Capacity 386 ug/dl (265-497)
[2025-08-08 13:48] LABS: Ferritin 19.8 ng/ml (11.1-264.0)
[2025-08-08 15:10] VITALS: BP 124/63
[2025-08-08] MEDS: TYLENOL 650 MG PO (15:43)
[2025-08-08] MEDS: HEPARIN 5000 UNITS SC ×2 (15:46→22:31)
[2025-08-08 19:43] VITALS: BP 134/69
[2025-08-08] MEDS: DESYREL PO ×2 (22:30→23:55)
[2025-08-08 23:45] VITALS: BP 153/78
[2025-08-09 03:08] VITALS: BP 126/40
[2025-08-09] MEDS: NSS 1000 IV (05:53)
[2025-08-09 07:35] VITALS: BP 108/45
[2025-08-09] MEDS: COZAAR PO (08:00)
[2025-08-09] MEDS: HEPARIN 5000 UNITS SC (08:00)
[2025-08-09] MEDS: TOPROL XL 12.5 MG PO (08:01)
[2025-08-09] MEDS: NORVASC PO (08:01)
[2025-08-09] MEDS: ATIVAN 0.5 MG PO (08:02)
--- NOTE | 2025-08-09 09:30 | W.PN.HOSP.TC ---
Today's Communication/Plan
-
dc
Assessment / Plan
Assessment / Plan
84yo F with PMHx of chronic L shoulder pain 2/2 rotator cuff tear, chronic anemia, anxiety, dementia, HTN, recent UTI completed Cipro 1 week ago came with onset of profuse diarrhea on the day of admission. Concern for possible colitis on CT, so
initially started on oral vanco pending stool Cx, however no BM in the hospital for 24h initially. Also dehydrated with hypokalemia. LAbs improved, since without diarrhea - most likely patient had non-specific infectious colitis that subsided.
Tolerated food well. Medically stable for d/c to [facility] as recommended by PT/OT
A/P:
#Colitis, most likely infectious
seems to be self-limiting as diarrhea stopped before Vanco oral initiated
short segments of circumferential wall thickening involving the hepatic flexure, distal transverse colon, splenic flexure, descending colon, sigmoid colon, and rectum. Rectum is associated with mild perinephric soft tissue stranding and mild
presacral edema. No evidence of pneumatosis. Likely nonspecific colitis
Stool studies
Probiotics
#Exophytic upper pole right renal cyst measuring 3.5 cm
#Mild peripheral renal cortical scarring
#CKD stage 3a
cont to follow with PCP
#Hypokalemia
Replete and follow
#L rotator cuff tear
years ago
cont tylenol and PT
DVT ppx hep
Full code
I have spent at least 36min reviewing chart, test results, communication with bedside and providing direct patient care
Anticipated Discharge: Today
Subjective/Interval History
-
Date of Service: August 09, 2025
Objective Data
-
Vital Signs:
Vital Signs
Temp Pulse Resp BP Pulse Ox
98.0 F 83 19 108/45 97
08/09/25 07:35 08/09/25 07:35 08/09/25 07:35 08/09/25 07:35 08/09/25 07:35
I&O
08/08/25 08/09/25 08/10/25
06:59 06:59 06:59
Intake Total 700 / 700
Balance 700 / 700
Review of Systems
-
Unable to obtain full review of systems at this time due to: Dementia
History Source: Patient
All other systems: Reviewed and negative
Physical Exam
-
General: No Apparent Distress
HEENT: Normocephalic
GI: Soft, Nontender and Nondistended
Musculoskeletal: No Clubbing, No Cyanosis, No Edema and Other (LUE cannot move in shoulder )
Neuro: Awake and Oriented
Psych: Calm and Apparent Dementia
--- NOTE | 2025-08-09 09:34 | W.DCSUMMARY ---
Addendum entered and electronically signed by Rhys Hernandez MD 08/09/25 10:54:
C.diff neg
Family declined STR that was recommended by PT
Addendum entered and electronically signed by Rhys Hernandez MD 08/09/25 09:41:
#Microcytosis, possible PEDRO
iron PO trial
Original Note:
Discharge Summary
Discharge Data
Date of Admission: 08/07/25
Date of Discharge: 08/09/25
-
Pending Results: No
Hospital Course
84yo F with PMHx of chronic L shoulder pain 2/2 rotator cuff tear, chronic anemia, anxiety, dementia, HTN, recent UTI completed Cipro 1 week ago came with onset of profuse diarrhea on the day of admission. Concern for possible colitis on CT, so
initially started on oral vanco pending stool Cx, however no BM in the hospital for 24h initially. Also dehydrated with hypokalemia. LAbs improved, since without diarrhea - most likely patient had non-specific infectious colitis that subsided.
Tolerated food well. Medically stable for d/c to STR as recommended by PT/OT. Norvasc dose decreased to avoud hypotension.
I have spent at least 36min reviewing chart, test results, communication with bedside and providing direct patient care
Patient was managed for:
#Colitis, most likely infectious
#Exophytic upper pole right renal cyst measuring 3.5 cm
#Mild peripheral renal cortical scarring
#CKD stage 3a
#Hypokalemia
#L rotator cuff tear
Discharge Plan
-
Patient Disposition: Half-Way/SNF
Discharge Diagnosis/Procedures: DIarrhea
Diet: Regular
Driving Restrictions: As prior to admission
Referrals:
UNKNOWN - PT DOES,NOT KNOW [Family Provider]
Prescriptions:
New
amlodipine [Norvasc] 5 mg tablet
5 mg PO DAILY Qty: 30 0RF
Probiotic 3 billion cell capsule
3,000 mmu cells PO DAILY Qty: 30 0RF
Continued
metoprolol succinate 25 mg Tablet Extended Release 24 Hr
12.5 mg PO BID
losartan 100 mg Tablet
100 mg PO DAILY
sennosides [senna] 8.6 mg Tablet
17.2 mg PO Q2D
Rx Instructions:
Alternates with Colace
trazodone 50 mg tablet
50 mg PO HS
lorazepam 0.5 mg tablet
0.5 mg PO DAILYPRN PRN (Reason: anxiety)
docusate sodium [Colace] 100 mg Capsule
200 mg PO Q2D
Rx Instructions:
Alternates with Senna
multivitamin with iron Tablet
1 tab PO DAILY
Discontinued
amlodipine 10 mg tablet
10 mg PO DAILY
Discharge Orders:
Discharge Patient (As Directed); Ordered 08/09/25
Ordered By: Rhys Hernandez
Discharge Date and Time
Print Language: TUNISIAN
--- NOTE | 2025-08-09 10:07 | W.PN.UPDATE ---
Update Note
Progress Note Update
Stool studies sent as patient was getting D/C - will hold D/C and follow results. PT/OT pending for dispo
--- NOTE | 2025-08-09 10:09 | CM ---
Addendum entered by Jami Parham 08/09/25 12:57:
Signed IMM on the chart from 08/07/25
Addendum entered by Jami Parham 08/09/25 12:55:
Ambulance pickup driver 1600
Addendum entered by Jami Parham 08/09/25 12:06:
Ambulance transport requested
Addendum entered by Jami Parham 08/09/25 12:03:
Plan: Discharge to Home with [facility] VN, PT/OT
[facility]
Original Note:
Met with patient and daughter at bedside
CM Consult completed: Advance Directive information packet provided
Family Primary Care Provider: Luly HOFF
Pharmacy verified: [facility]
Lives w/ and family (daughter's home); multilevel home; 1st floor set up w/ hospital bed and Justice lift; 1 step to enter home; half bath on 1st floor;
per daughter, patient can stand and pivot to commode and wheelchair; minimal ambulation w/ rolling walker
Will need ambulance transport
PT/OT pending
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
Plan: Family prefers that patient is discharged to home with [facility] services; not go to SNF; Attending notified
--- NOTE | 2025-08-09 10:41 | WOUNDNOTE ---
[facility] RN note: Patient admitted with diarrhea, colitis. Patient lives with family including her daughter who takes care of patient. Patient has a hospital bed and air mattress, and a pressure redistributing chair cushion. Patient for possible
discharge to home today.
See H&P for complete history.
PMH: a fib, watchman, HTN, constipation, anxiety, skin graft from thigh/buttocks [place] from spilling tea several years ago.
Wound Location and type/assessment: Patient admitted with: blanchable red sacral/buttocks skin with some dry chafed skin, not open. R upper back slow to luci red area. Heels blanchable red/boggy.
Appetite: good.
Pressure redistribution devices in place: [employer] Accumax. Discussed with RN Walker who will add an air overlay if patient not discharged today.
Plan: Sacral silicone border foam changed. Protective foam changed on heels. Patient incontinent of urine. Disposable underpad changed and patient turned to R semi side lying position with help from [facility] RN executive assistant to president Deidre. Heels off bed with
pillow. Daughter reviewed pressure injury prevention measures.
Care plan to be updated, will sign off. Call with concerns/questions.
--- NOTE | 2025-08-09 10:55 | WOUNDNOTE ---
BACK(MID-RIGHT)
[2025-08-09] MEDS: PREVNAR 20 0.5 ML IM (11:19)
[2025-08-09 11:29] VITALS: BP 145/75
[2025-08-09 14:38] VITALS: BP 151/86
== END 2025-08-09 17:58 | disposition home health service (06) | DRG 392 ==
LOC: 4 WEST ACU 18:55
PROVIDERS: Emergency Medicine; Physician Assistant; Physician Assistant Medical; ADMITTING PHYSICIAN Internal Medicine; ATTENDING PHYSICIAN Internal Medicine; EMERGENCY PHYSICIAN Emergency Medicine
DX: A09 Infectious gastroenteritis and colitis, unspecified (principal); A04.72 Enterocolitis due to Clostridium difficile, not specified as recurrent; Z11.52 Encounter for screening for COVID-19; E87.6 Hypokalemia; Z95.818 Presence of other cardiac implants and grafts; I48.0 Paroxysmal atrial fibrillation; N18.31 Chronic kidney disease, stage 3a; I12.9 Hypertensive chronic kidney disease with stage 1 through stage 4 chronic kidney disease, or unspecified chronic kidney disease; G47.00 Insomnia, unspecified; F41.0 Panic disorder [episodic paroxysmal anxiety]; N28.1 Cyst of kidney, acquired; R71.8 Other abnormality of red blood cells
CPT/HCPCS: 74177; 80048; 81003; 81015; 82728; 83540; 83550; 83605; 83735; 84100; 84132; 85025; 85027; 87045; 87046; 87324; 87427; 87449; 87502; 87798; 87811; 89055; 90677; 93005; 96360; 97163; 99285; G0009; Q9967